=== PATIENT | male | born 1985 | race Caucasian/White ===

== ENCOUNTER 2022-03-01 15:26 | Outpatient (CLI) | payer OTHER, SELFPAY ==
[2022-03-01 18:39] LABS: Basophils Absolute Auto 0.1 K/mm3 (0.0-0.1); Basophils Percent Auto 0.8 % (0.2-1.2); Eosinophils Absolute Auto 0.1 K/mm3 (0-0.3); Eosinophils Percent Auto 1.4 % (0-4.4); Hematocrit 46.4 % (42.0-52.0); Hemoglobin 15.6 g/dL (14.0-18.0); Immature Granulocyte Absolute 0.02 K/mm3 (0.00-0.031); Immature Granulocyte Percent A 0.3 % (0-0.5); Lymphocytes Absolute Auto 2.03 K/mm3 (0.9-3.2); Lymphocytes Percent Auto 25.6 % (18.3-44.2); Mean Corpuscular HGB Conc 33.6 g/dl (32-36); Mean Corpuscular Hemoglobin 30.4 pg (26-34); Mean Corpuscular Volume 90.4 fl (80-100); Mean Platelet Volume 10.3 fl (7.4-10.4); Monocytes Absolute Auto 0.5 K/mm3 (0.1-0.6); Neutrophils Absolute Auto 5.2 K/mm3 (1.3-6.7); Neutrophils Percent Auto 65.9 % (45.5-73.1); Platelet Count Result 212 k/mm3 (150-375); Red Blood Count 5.13 M/mm3 (4.6-6.20); Red Cell Distribution Width 12.8 % (11.5-14.5); White Blood Count 7.9 K/mm3 (4.5-10.0)
[2022-03-01 21:59] LABS: Alanine Aminotransferase 37 U/L (6-50); Albumin Level 4.6 g/dL (3.5-5.1); Alkaline Phosphatase 57 U/L (38-126); Anion Gap 8 mmol/L (8-16); Aspartate Amino Transferase 56 U/L (17-59); Bilirubin,Total 0.5 mg/dL (0.2-1.3); Blood Urea Nitrogen 8 mg/dL (9-20); Calcium 9.3 mg/dL (8.4-10.2); Carbon Dioxide 31 mmol/L (22-30); Chloride 100 mmol/L (98-107); Cholesterol 186 mg/dL (0-200); Estimated Glomerular Filt Rate > 60; Glucose 92 mg/dL (65-110); HDL Direct 42 mg/dL; Sodium 139 mmol/L (137-145); Triglycerides 125 mg/dL (<150)
[2022-03-01 22:03] LABS: LDL Cholesterol Direct 105 mg/dL
== END 2022-03-01 15:27 | disposition home or self-care (01) ==
LOC: ANHGOSHLAB 15:29
PROVIDERS: PCP Internal Medicine; Visit Provider Clinical Nurse Specialist
DX: Z13.228 Encounter for screening for other metabolic disorders (principal); Z13.220 Encounter for screening for lipoid disorders; R00.0 Tachycardia, unspecified
CPT/HCPCS: 36415; 80053; 80061; 84443; 85025

== ENCOUNTER 2022-03-03 13:39 | Outpatient (CLI) | payer OTHER, SELFPAY ==
--- NOTE | ~2022-03-03 | XR_ITS ---
XR knee RT 3V DATE: 03/03/2022 13:57 INDICATION: Anterior knee pain TECHNIQUE: AP, lateral and sunrise views COMPARISON: None FINDINGS: No fracture or dislocation or joint effusion. No periosteal reaction or bone destruction. J oint spaces are preserved. No radiopaque interarticular loose body or chondrocalcinosis. IMPRESSION: Negative Reviewed, dictated and finalized at location A. [employer] IMPRESSION: Negative
== END 2022-03-03 13:40 | disposition home or self-care (01) ==
LOC: ANHIMG 13:42
PROVIDERS: PCP Internal Medicine; Visit Provider Clinical Nurse Specialist
DX: M25.561 Pain in right knee (principal)
CPT/HCPCS: 73562

== ENCOUNTER 2022-06-09 16:16 | Outpatient (CLI) | payer OTHER, SELFPAY ==
--- NOTE | ~2022-06-09 | CT_ITS ---
EXAMINATION: CT sinus wo con DATE: 06/09/2022 16:44 INDICATION: Chronic sinusitis TECHNIQUE: Computed tomography (CT) of the paranasal sinuses was performed without intravenous contra st. The dose-length product (DLP) was 363.96 mGy-cm. Iterative reconstruction was used. COMPARISON: None FINDINGS: There is normal development and pneumatization of the paranasal sinuses. The frontal, right sphenoid, and maxillary sinuses are clear. There is mild mucosal thickening of the ethmoidal air howard ls and left sphenoid sinus. The right ostiomeatal complex is patent. The left is occluded. Visualized soft tissues are unremarkable. IMPRESSION: 1. Sinus disease as detailed above. Reviewed, dictated and finalized at location F.
--- NOTE | ~2022-06-09 | MR_ITS ---
MRI of the right knee Clinical history: Pain Technique: Coronal proton density and proton density-weighted images, sagittal proton-density and T2 fat-sat images, and axial proton-density fat-saturated images were acquired. Findings: Anterior and posterior cruciate ligaments are intact. Medial collateral ligament and the la teral collateral ligament complex are intact. Popliteus tendon is intact. There is prominent horizontal tear of the posterior horn and body of the medial meniscus. No lateral meniscal tear identified. There is a probable associated posterior meniscal cyst related to the media l meniscal tear extending posterior to the PCL, measuring approximately 1.9 x 1.1 x 2.9 cm in extent. Articular cartilage is well preserved throughout the knee. Bone marrow signals are unremarkable. Extensor mechanism is intact. No significant joint effusion. No Austin's cyst. Impression: Prominent horizontal tear of the posterior horn and body of medial meniscus with associated posterior para-meniscal cyst measuring 1.9 x 1.1 x 2.9 cm. Reviewed, dictated and finalized at location . Impression: Prominent horizontal tear of the posterior horn and body of medial meniscus wit h associated posterior para-meniscal cyst measuring 1.9 x 1.1 x 2.9 cm.
== END 2022-06-09 16:17 | disposition home or self-care (01) ==
PROVIDERS: PCP Internal Medicine; Visit Provider Otolaryngology
DX: J01.21 Acute recurrent ethmoidal sinusitis (principal); J34.89 Other specified disorders of nose and nasal sinuses; S83.241A Other tear of medial meniscus, current injury, right knee, initial encounter; M23.021 Cystic meniscus, posterior horn of medial meniscus, right knee; X58.XXXA Exposure to other specified factors, initial encounter
CPT/HCPCS: 70486; 73721

== ENCOUNTER 2023-11-26 12:10 | Emergency (ER) | payer OTHER, BC, SELFPAY ==
[2023-11-26 12:19] VITALS: BP 154/115; PULSE 110; RESP 18; TEMP 36.6; O2SAT 100
[2023-11-26 14:57] VITALS: BP 132/83; PULSE 88; RESP 18; O2SAT 97
[2023-11-26 14:59] VITALS: O2SAT 99
--- NOTE | 2023-11-26 15:40 | ED.GENADULT ---
HPI - General Adult General Chief complaint: Allergic Reaction Stated complaint: lip and eye swelling, sob, possible allergic react Time Seen by Provider: 11/26/23 14:46 History of Present Illness HPI narrative: 38-year-old male presents to the emergency department for evaluation for swelling of his left eye and right lower lip. Patient does have recent sinus infections and was started on Zyrtec 7 Flonase yesterday. Patient states he has not taking these medications previously. After use the medication patient noticed increased swelling of the left eye and swelling of the right lower lip. Patient did take a dose of Benadryl and feels that the symptoms have improved. Related Data Home Medications Medication Instructions Recorded Confirmed omeprazole 20 mg capsule,delayed 20 mg PO DAILY 05/30/22 05/30/22 release Allergies Allergy/AdvReac Type Severity Reaction Status Date / Time No Known Allergies Allergy Unverified 05/30/22 14:56 Review of Systems Review of Systems: All systems reviewed & are unremarkable except as noted in HPI and below PMFSH Social History Social History Smoking packs per day: 0.5 Smoking cigarettes per day: 10.0 Smoking status: Former smoker Tobacco type: cigarettes Alcohol intake: current Alcohol use details: socially Lack of Transportation: No Lack of Food: Never True Current Housing: I Have Housing Concerned About Future Housing: No Difficulty Paying Gas/Electric Bills: No Difficulty Paying for Meds: No Currently Unemployed: No Education: High School Diploma/GED Difficulty w/ Childcare or Family Care: No Living arrangements: with family Additional living arrangements comments: With and kids. Occupation/Education: occupation Gender identity (if verbalized by the patient): Male Exam Narrative: APPEARANCE: Well appearing, no pain, no distress, well-nourished. HEAD: normocephalic, atraumatic. EYES: PERRLA/EOMI, conjunctivae clear. Mild swelling under the left eye with no erythema NOSE: Normal no drainage EARS:TMS clear with good light reflex. THROAT: Pharynx clear, no exudate. NECK: Supple. No adenopathy, no masses. RESPIRATORY: Airway patent, respirations nonlabored. Clear to auscultation bilaterally, no rales, rhonchi, wheezing. CARDIOVASCULAR: Regular rate and rhythm without murmurs rubs or gallops. ABDOMINAL: Soft, nontender, nondistended, normal bowel sounds MUSCULOSKELETAL: Moves all extremities. Strength/ROM intact, No edema, No calf tenderness. NEURO: Alert. Cranial nerves II through XII intact. Grossly intact SKIN: Warm, dry. Normal Color Course Vital Signs Vital signs: Vital Signs Temperature 97.8 F 11/26/23 12:19 Pulse Rate 110 H 11/26/23 12:19 Respiratory Rate 18 11/26/23 12:19 Blood Pressure 154/115 H 11/26/23 12:19 Pulse Oximetry 100 11/26/23 12:19 Oxygen Delivery Room Air 11/26/23 12:19 Temperature 97.8 F 11/26/23 12:19 Pulse Rate 73 11/26/23 16:01 Respiratory Rate 20 11/26/23 16:01 Blood Pressure 127/86 11/26/23 16:01 Pulse Oximetry 100 11/26/23 16:01 Oxygen Delivery Room Air 11/26/23 14:59 Medical Decision Making MDM Narrative Medical decision making narrative: 38-year-old male presenting ED for evaluation for suspected allergic reaction to Flonase and Zyrtec. Patient is being started on prednisone for suspected allergic reaction. Patient states he felt improved Benadryl so patient was advised to continue the Benadryl as needed. Differential Diagnosis Differential Diagnosis: Angioedema, allergic reaction, sinusitis, adverse drug reaction, dependent edema Vital Signs Vital Signs: Vital Signs Temperature 97.8 F 11/26/23 12:19 Pulse Rate 110 H 11/26/23 12:19 Respiratory Rate 18 11/26/23 12:19 Blood Pressure 154/115 H 11/26/23 12:19 Pulse Oximetry 100 11/26/23 12:19 Oxygen Delivery Room A
[2023-11-26] MEDS: predniSONE 20 MG TABLET 40 MG PO (15:54)
[2023-11-26 16:01] VITALS: BP 127/86; PULSE 73; RESP 20; O2SAT 100
== END 2023-11-26 16:04 | disposition home or self-care (01) ==
PROVIDERS: Emergency Provider Emergency Medicine
DX: T78.40XA Allergy, unspecified, initial encounter (principal); X58.XXXA Exposure to other specified factors, initial encounter; Z87.891 Personal history of nicotine dependence
CPT/HCPCS: 99283; J7512